=== PATIENT | female | born 1950 | race Caucasian/White ===

== ENCOUNTER 2019-01-29 20:14 | Emergency (ER) | payer MEDICARE, BC ==
[2019-01-29] MEDS ORDERED: LIDOCAINE 1% INJ 10MG/ML (20 ML MDV) SQ STA (20:59)
[2019-01-29] MEDS ORDERED: DIPH,PERTUS(ACELL)TETVAC-LF 0.5 ML VIAL IM ONE (20:59)
--- NOTE | 2019-01-29 21:51 | CT ---
EXAMINATION TYPE: CT brain cspine wo con DATE OF EXAM: 01/29/2019 COMPARISON: None HISTORY: Fall. Left side jaw pain. CT DLP: 1234.8 mGycm Automated exposure control for dose reduction was used. TECHNIQUE: CT scan of the head and cervical spine are performed without contrast. FINDINGS: There is no acute intracranial hemorrhage, mass effect, or midline shift identified. The ventricles and sulci are within normal limits in size. Incidental 2 cm calcification noted in extra -axial position, over the left parietal lobe, consistent with incidental calcified meningioma of doub tful clinical significance. A similar 1.5 cm extra-axial soft tissue defect is seen anteriorly over t he left frontal lobe, also consistent with meningioma (noncalcified) and of doubtful clinical signifi cance. The globes are intact and the visualized sinuses are clear. Cervical spine is visualized in its entirety from C1 through upper thoracic levels and demonstrates s atisfactory alignment without evidence of acute fracture or dislocation. Prevertebral soft tissue ap pears within normal limits. The C1-C2 articulation is unremarkable. IMPRESSION: No acute process, CT brain/c-spine without contrast.
--- NOTE | 2019-01-29 22:19 | ED ---
General Adult HPI - General Chief complaint: Wound/Laceration Stated complaint: fall/ facial injury Time Seen by Provider: 01/29/19 20:39 Source: patient, RN notes reviewed, old records reviewed Mode of arrival: ambulatory Limitations: no limitations - History of Present Illness Initial comments: 68-year-old female patient lives ED after sustaining a mechanical slip and fall. Patient reports she was walking on a gravel pathway when she slipped falling forward. Patient reports that she does have a minor trauma to her mouth on the gravel. Patient denies any loss of consciousness. Patient has a changes in vision. Patient denies any pain in neck. Patient has a simple thinners. Patient does have a small abrasion to the outside of her left lower lip as well as a laceration on her inner oral mucosa. Denies any dental injury or any broken teeth. Denies any other injury. Patient is ambulatory without difficulty. Systemic: Pt denies fatigue, myalgia, fever/chills, rash. Pt denies weakness, night sweats, weight loss. Neuro: Pt denies headache, visual disturbances, syncope or pre-syncope. HEENT: Pt denies ocular discharge or irritation, otalgia, rhinorrhea, pharyngitis or notable lymphadenopathy. Cardiopulmonary: Pt denies chest pain, SOB, heart palpitations, dyspnea on exertion. Abdominal/GI: Pt denies abdominal pain, n/v/d. : Pt denies dysuria, burning w/ urination, frequency/urgency. Denies new onset urinary or bowel incontinence. MSK: Pt denies myalgia, loss of strength or function in extremities. Neuro: Pt denies new onset weakness, paresthesias. - Related Data Allergies Allergy/AdvReac Type Severity Reaction Status Date / Time bee venom protein (honey bee) Allergy Swelling Verified 01/29/19 20:23 penicillin V Allergy Swelling Verified 01/29/19 20:23 Penicillins Allergy Swelling Verified 01/29/19 20:23 shellfish derived [Shrimp] Allergy Swelling Verified 01/29/19 20:23 Review of Systems ROS Statement: Those systems with pertinent positive or pertinent negative responses have been documented in the HPI. ROS Other: All systems not noted in ROS Statement are negative. Past Medical History Past Medical History: Hyperlipidemia, Hypertension History of Any Multi-Drug Resistant Organisms: None Reported Additional Past Surgical History / Comment(s): bilateral foot surgery Past Psychological History: No Psychological Hx Reported Smoking Status: Never smoker Past Alcohol Use History: Occasional Past Drug Use History: None Reported General Exam - General Exam Comments Initial Comments: Constitutional: NAD, AOX3, Pt has pleasant affect. HEENT: NC/AT, trachea midline, neck supple, no lymphadenopathy. Posterior pharynx non erythematous, without exudates. External ears appear normal, without discharge. Mucous membranes moist. Eyes PERRLA, EOM intact. There is no scleral icterus. No pallor noted. 1 cm laceration on scan below left lower lip. Cleaned and approximated with a Steri-Strip. 3 cm laceration noted on inner oral mucosa left lower lip. No through and through. Approximated with 2 dissolvable sutures. No dental injury. No tenderness to mandible. Patient able to bite down on popsicle stick in all 3 regions. Cardiopulmonary: RRR, no murmurs, rubs or gallops, no JVD noted. Lungs CTAB in anterior and posterior squires. No peripheral edema. Abdominal exam: Abdomen soft and non-distended. Abdomen non-tender to palpation in all 4 quadrants. Bowel sounds active in LLQ. No hepatosplenomegaly. No ecchymosis Neuro: CN II-XII intact. No nuchal rigidity. No cervical spinal tenderness. MSK: No posterior calf tenderness bilaterally, homans sign negative bilaterally. Posterior tibialis and radial pulse +2 bilaterally. Sensation intact in upper and lower extremities. Full active ROM in upper and lower extremities, 5/5 stregnth. Limitations: no limitations Course Vital Signs 01/29/19 01/29/19 20:18 22:25 Temperature 98.2 F 98.7 F Pulse Rate 68 74 Respiratory 18 19 Rate Blood Pressure 166/89 141/74 O2 Sat by Pulse 96 98 Oximetry Procedures - Laceration Laceration #1 Consent Obtained: verbal consent Indication: laceration Site: oral (oral mucosa ) Size (cm): 3 Description: linear Depth: simple, single layer Anesthetic Used: lidocaine 1% Anesthesia Technique: local infiltration Amount (mls): 3 Pre-repair: wound explored Type of Sutures: vicryl Size of Sutures: 5-0 Number of Sutures: 2 (loosely approximated ) Technique: simple, interrupted Patient Tolerated Procedure: well, no complications Medical Decision Making - Medical Decision Making 68-year-old female patient lives ED after sustaining a mechanical slip and fall. Patient reports she was walking on a gravel pathway when she slipped falling forward. Patient reports that she does have a minor trauma to her mouth on the gravel. Patient denies any loss of consciousness. Patient has a changes in vision. Patient denies any pain in neck. Patient has a simple thinners. Patient does have a small abrasion to the outside of her left lower lip as well as a laceration on her inner oral mucosa. Denies any dental injury or any broken teeth. Denies any other injury. Patient is ambulatory without difficulty. Patient vital signs stable, afebrile. Physical exam displayed: 1cm laceration on scan below left lower lip. Cleaned and approximated with a Steri-Strip. 3 cm laceration noted on inner oral mucosa left lower lip. No through and through. Approximated with 2 dissolvable sutures. No dental injury. No tenderness to mandible. Patient able to bite down on popsicle stick in all [address] brain and C-spine displayed no acute process. Patient tetanus updated. Patient will discharge and follow-up with primary care provider in 1-2 days. Patient return to ER if condition worsens. Case discussed with Dr. Larose. Disposition Clinical Impression: Fall, Laceration Disposition: HOME SELF-CARE Condition: Stable Instructions (If sedation given, give patient instructions): Laceration (ED), Fall Prevention (ED) Additional Instructions: Patient to adhere to previously discussed treatment plan and will take medication(s) as directed. Patient to follow up with PCP in 1-2 days. Patient to return to ED if symptoms do not improve. Please monitor for signs and symptoms of infection including: redness, warmth, drainage, discharge. Please return to ED if these signs or symptoms occur, new signs or symptoms de velop or if condition worsens in anyway. Is patient prescribed a controlled substance at d/c from ED?: No Referrals: Marli Arriaza MD [Primary Care Provider] - 1-2 days
[2019-01-29 22:35] VITALS: BP 141/74; PULSE 74; RESP 19; TEMP 98.7
== END 2019-01-29 22:27 | disposition home or self-care (01) ==
LOC: EC 20:14
DX: S01.512A Laceration without foreign body of oral cavity, initial encounter (principal); S01.511A Laceration without foreign body of lip, initial encounter; Z88.0 Allergy status to penicillin; Z91.013 Allergy to seafood; Z91.018 Allergy to other foods; Z23 Encounter for immunization; W01.0XXA Fall on same level from slipping, tripping and stumbling without subsequent striking against object, initial encounter; Y93.01 Activity, walking, marching and hiking; Y92.89 Other specified places as the place of occurrence of the external cause
CPT/HCPCS: 72125; 70450; 90715; 99284; 12013; 90471; J2001